=== PATIENT | female | born 2000 | race Caucasian/White ===

== ENCOUNTER 2023-05-10 16:35 | Outpatient (REF) | payer BC, SELFPAY ==
--- NOTE | 2023-05-10 15:00 | PAPFT_PTH ---
PATIENT: Nichole German LOC: [facility]#:[id number] AGE/SX: 22/F ROOM: RE05/10/[address]: Mary Whiteside NP : 2000 BED: DIS: 05/10/2023 SPEC #: [id number] RECD: 05/13/23 13:11 STATUS: TAMMIE REQ #: [id number] MELVI: 05/10/23 15:[address]: Mary Whiteside DEPT: [facility] Cytology RECD BY: Nata Mcleod ENTERED: 05/13/23 13:11 SP TYPE: PAPFT ISREAL DR: Unknown,Unknown Tissues: 1 - CX/ENDOCX FOR PAP SMEARS Procedures: PAP THIN PREP/UVM Screening HPV DNA PROBE Comments: [id number] (CHLAMYDIA/GC)
[2023-05-14 14:40] LABS: Chlamydia Result Negative (Negative); GC Result Negative (Negative)
== END 2023-05-10 16:36 | disposition home or self-care (01) ==
LOC: NCHCN 16:35
PROVIDERS: Visit Provider Nurse Practitioner Family
DX: R10.2 Pelvic and perineal pain (principal); Z12.4 Encounter for screening for malignant neoplasm of cervix; Z11.51 Encounter for screening for human papillomavirus (HPV)
CPT/HCPCS: 87491; 87591; 88142; 87480; 87510; 87624; 87660

== ENCOUNTER 2023-05-16 18:46 | Outpatient (REF) | payer BC, SELFPAY ==
[2023-05-16 19:04] LABS: HGB 12.3 g/dL (11.2-15.7); MCH 28.9 pg (27.0-33.0); MCHC 33.2 % (32.0-36.0); MCV 87 fL (80-95); MPV 9.6 fL (8.0-11.0); Platelet Count 286 10^3/uL (130-400); RBC 4.25 10^6/uL (3.93-5.22); RDW 13.2 % (11.7-14.6); RDW-SD 42.2 fL; WBC 8.08 10^3/uL (4.4-10.8)
[2023-05-16 19:08] LABS: Anion Gap 8.4 mmol/L (3-11); BUN 11 mg/dL (7-18); CO2 27.6 mmol/L (21.0-32.0); CREATININE 0.7 mg/dL (0.55-1.02); Calcium 9.2 mg/dL (8.5-10.1); Chloride 103 mmol/L (98-107); Estimated GFR 123.78 (mL/min/1.73m2); Glucose 80 mg/dL (74-106); Potassium 3.7 mmol/L (3.5-5.1); Sodium 139 mmol/L (136-145)
[2023-05-18 09:32] LABS: HIV-1/2 Ag & Ab Screen Negative (Negative)
[2023-05-20 10:24] LABS: Syphilis Serology (RPR) Negative (Negative)
[2023-05-20 10:32] LABS: HSV Type 1 Ab, IgG Negative (Negative); HSV Type 2 Ab, IgG Negative (Negative)
== END 2023-05-16 18:47 | disposition home or self-care (01) ==
LOC: NCHCN 18:46
PROVIDERS: Visit Provider Nurse Practitioner Family
DX: R10.2 Pelvic and perineal pain (principal); Z11.3 Encounter for screening for infections with a predominantly sexual mode of transmission; Z11.4 Encounter for screening for human immunodeficiency virus [HIV]; Z11.59 Encounter for screening for other viral diseases
CPT/HCPCS: 80048; 85027; 87389; 86592; 86695; 86696

== ENCOUNTER → 2023-08-02 12:18 | Outpatient (CLI) | payer BC, SELFPAY ==
--- NOTE | 2023-08-02 | DI.RAD_ITS ---
Exam(s) XR LUMBAR SPINE COMPLETE EXAM: XR LUMBAR SPINE COMPLETE CLINICAL HISTORY: LOW BACK PAIN M54.50. TECHNIQUE: 2D digital imaging was performed. COMPARISON: No exams were available for comparison FINDINGS: Five views. No evidence of fracture, listhesis, nor pars defects. Disc spaces exhibit normal height at each leve l. Facet joints appear unremarkable. Bone density normal. No osseous lesions. No scoliosis. Sacr oiliac joints unremarkable. IMPRESSION: No significant radiograph findings on these five views of the lumbosacral spinal column. DATA REPOSITORY: RADIATION DOSE DELIVERED:
--- OUTSIDE RECORDS SUMMARY | 2023-08-02 12:20 | XMS_ITS | Continuity of Care Document ---
Author Name Unknown Organization [facility] Address [address] [place] [address] [facility] NBR [id number] Date(s): 05/19/23 - 05/19/23 [facility] [address] [place] [address] us Encounter Diagnosis Cold sore(Discharge Diagnosis) - 05/19/23 Gingivostomatitis(Discharge Diagnosis) - 05/19/23 Right-sided low back pain with sciatica(Discharge Diagnosis) - 05/19/23 Discharge Disposition: Home or Self Care Attending Physician: Erin Winkler PA-C Admitting Physician: Erin Winkler PA-C Allergies, Adverse Reactions, Alerts Substance Reaction Severity Status penicillin Anaphylactic reaction Severe Active Functional Status 05/19/23 Other exposure to Infectious Disease Non e Medications amitriptyline 0 Refill(s) Start Date: 05/19/23 Status: Ordered FIRST Mouthwash BLM mucous membrane suspension See Instructions, swish 15 mL (1 tbsp) for 30 seconds without swallowing, spit, repeat every 4-6 hours, # 300 mL, 0 Refill(s), Pharmacy: [facility] #[id number] Start Date: 05/19/23 Status: Ordered naproxen 500 mg oral delayed release tablet 500 mg = 1 tab, Oral, BID, # 20 tab, 0 Refill(s), Pharmacy: [facility] #[id number] Start Date: 05/19/23 Stop Date: 05/29/23 Status: Ordered Nexplanon 0 Refill(s) Start Date: 05/19/23 Status: Ordered valACYclovir 1 g oral tablet 1 g = 1 tab, Oral, TID, # 21 tab, 0 Refill(s), Pharmacy: [facility] #[id number] Start Date: 05/19/23 Stop Date: 05/26/23 Status: Ordered Vital Signs Most recent to oldest [Reference Range]: 1 Temperature Tympanic [36.6-38.1 Deg C] 3 6.5 Deg C *LOW* (05/19/23 12:02 PM) Peripheral Pulse Rate [60-100 bpm] 112 b pm *HI* (05/19/23 12:02 PM) Respiratory Rate [12-24 br/min] 18 br/mi n (05/19/23 12:02 PM) Blood Pressure [90-140/60-90 mmHg] 152/1 00mmHg *HI* (05/19/23 12:02 PM) Mean Arterial Pressure, Cuff [70-110 mmH g] 117 mmHg *HI* (05/19/23 12:02 PM) Hospital Discharge Instructions Patient Education 05/19/2023 11:20:01 Primary Herpetic Gingivostomatitis, Pediatric Primary Herpetic Gingivostomatitis, Pediatric Primary herpetic gingivostomatitis is an infection of the mouth, gums, and throat. It is caused by a virus. This is a common infection in children and teenagers. The infection can cause sores and pain in the affected areas. Symptoms can range from mild to severe. In severe cases, the sores can make it difficult to eat and drink. The symptoms usually get better in 1???2 weeks. This virus is carried by many people. Most people get this infection early in childhood. After a person is infected, he or she carries the virus forever, but it is usually not active and does not cause symptoms. It may flare up again and cause cold sores at various times. What are the causes? This condition is caused by a virus called herpes simplex virus type 1 (HSV-1). This is the virus that causes cold sores. The virus is contagious. This means that it can spread from person to person through close contact, such as kissing or sharing drinks or utensils. What are the signs or symptoms? Symptoms can vary from mild to severe. They may include: ??? Small sores and blisters on or in the mouth, tongue, gums, throat, and lips. ??? Swelling of the gums or lips or drooling. ??? Bleeding gums or severe mouth pain. ??? High fever. ??? Decreased appetite, refusal to eat or drink, or irritability from pain. ??? Swollen, tender lymph nodes on the sides of the neck. ??? Headache, tiredness (fatigue), or general discomfort, uneasiness, or feeling ill. How is this diagnosed? This condition is usually diagnosed with a physical exam. In some cases, the sores are tested for the HSV-1 virus. How is this treated? This condition usually goes away on its own within 2 weeks. Sometimes, a medicine to treat the virus is used to help shorten the illness. Medicated mouth rinses can help with mouth pain. Follow these instructions at home: Medicines ??? Give fspg-hzi-lwrupcj and prescription medicines only as told by your child's health care provider. ??? Do not give your child aspirin because of the association with Juventino's syndrome. ??? Do not use products that contain benzocaine (including numbing gels) to treat teething or mouthpain in children who are younger than 2 years. These products may cause a rare but serious blood condition. Eating and drinking ??? Give your child enough fluid to keep his or her urine pale yellow. ??? Give your child frozen ice pops and cool, non-citrus juices. These may help to relieve pain. ??? Give your child soft and cold foods. Ice cream, gelatin dessert, and yogurt are good choices. ??? Have your child avoid foods and drinks that could irritate the sores. These include acidic drinks such as orange juice. ??? For babies, continue with breast milk or formula as usual. Oral hygiene Help your child take good care of his or her mouth and teeth (oral hygiene) by: ??? Brushing his or her teeth with a soft toothbrush twice each day. ??? Flossing his or her teeth every day. If brushing is too painful, wipe your child's teeth with a wet washcloth instead. General instructions ??? If your child is old enough to rinse and spit, have your child gargle with a mixture of salt and water 3 or 4 times a day or as needed. To make salt water, completely dissolve ?1 tsp (3???6 g) of salt in 1 cup (237 mL) of warm water. ??? Wash your hands often with soap and water for at least 20 seconds. Always wash your hands well after handling children who are infected. ??? Make sure that your child: ??? Keeps his or her hands away from the mouth area. ??? Avoids rubbing his or her eyes. ??? Washes his or her hands often. ??? Keep your child away from other people as told by your child's health care provider. ??? Keep all follow-up visits. This is important. Contact a health care provider if: ??? Your child refuses to drink or take fluids. ??? Your child has a fever that returns after it was gone for 1 or 2 days. ??? Your child has severe pain that is not controlled with medicines. ??? Your child's symptoms get worse. Get help right away if: ??? Your child has pain and redness in the eye or on the eyelids. ??? Your child has decreased vision or blurred vision. ??? Your child has eye pain or increased sensitivity to light. ??? You see tearing or fluid draining from your child's eye. ??? Your child who is younger than 3 months has a temperature of 100.4??F (38??C) or higher. ??? Your child who is 3 months to 3 years old has a temperature of 102.2??F (39??C) or higher. ??? Your child shows signs of dehydration, such as: ??? Unusual fussiness. ??? Dry mouth. ??? Weakness and fatigue. ??? No tears when crying. ??? Not urinating at least once every 8 hours. These symptoms may represent a serious problem that is an emergency. Do not wait to see if the symptoms will go away. Get medical help right away. Call your local emergency services (911 in the [place] Summary ??? Primary herpetic gingivostomatitis is an infection of the mouth, gums, and throat that is common in children and teenagers. ??? The infection can cause sores and pain in the affected areas. Symptoms can range from mild to severe. In more severe cases, the sores can make it difficult to eat and drink. ??? The condition is caused by a virus called herpes simplex type 1 (HSV-1). This is the virus thatcauses cold sores. The virus can spread from person to person through close contact. ??? This condition usually goes away on its own within 2 weeks. Sometimes, a medicine to treat the virus is used to help shorten the illness. Medicated mouth rinses can help with mouth pain. ??? Give medicines, fluids, and food as told. Encourage your child to take good care of his or her mouth and teeth (oral hygiene), including brushing and flossing. This information is not intended to replace advice given to you by your health care provider. Make sure you discuss any questions you have with your health care provider. Document Revised: 09/15/2021 Document Reviewed: 09/15/2021 [email or web address] Patient Education ?? 2022 [employer]. Physician Outpatient Note * Erin Winkler PA-C: PERFORM Event Display: Office Clinic Note Physician Authored Date: [id number] JEANNIE ULLOA :2000 Age:22 years Sex:Female Visit Date:05/19/2023 Chief Complaint cold sore ongoing x1 week, pt states sore spread to tongue and inside right cheek History of Present Illness This is a 22-year-old female who presents for evaluation of??cold sore??and ulcers in her mouth. ??Patient notes that over the past couple of days she has developed a cold sore??on her lower lip. ??She has had a cold sore once before in her life, approximately 6 years ago. ??She also notes that shehas developed some??sores inside of her mouth and her gums are swollen and bleeding with brushing.?? She has been feeling more fatigued and a bit rundown. ??She denies??cough, congestion, sore throat. ??She has had sweats and chills but has not??registered a fever. ??No body aches. ??She also reports that??she has been dealing with chronic low back pain. ??She is currently experiencing a flare??on the right side of her low back and and is experiencing shooting pain, numbness, tingling down the right leg.?? She denies any bladder or bowel dysfunction. ??No weakness or foot drop.?? She notes she has been in physical therapy off and on in the years but is never had any imaging Physical Exam Vitals & Measurements T:??36.5?C ??(Tympanic)?? HR:??112??(Peripheral)?? RR:??18?? BP:??152/100?? SpO2:??100%?? General: A&O x 3, well-built and hydrated, no acute distress Eyes: PERRLA, no redness or drainage Ears: auditory canals non-tender bilaterally, bilateral TMs translucent and pearly seals Nose: nares moist and patent Mouth: Erythematous crusted ulcer on the??right lower lip.?? Shallow, erythematous ulcers on the left lateral tongue, right buccal mucosa, left buccal mucosa.?? Gingiva mildly erythematous without active bleeding Throat: oropharynx and tonsils without erythema or exudate Neck:??5/5 flexion and extension, supple, no lymphadenopathy Chest: symmetric rise Heart: normal S1S2, no murmurs, rubs, gallops Lungs: equal and symmetric respiratory effort, lungs clear to auscultation without wheezes, rales, rhonchi Back: No vertebral spine tenderness, there is tenderness over the right SI joint??and glutes.?? Flexion, extension, lateral bending, lateral rotations intact.?? Patellar and ankle jerk reflexes intact.?? Negative straight leg raise Assessment/Plan 1.??Cold sore??B00.1 Patient's symptoms consistent with herpetic gingivostomatitis.?? Reviewed etiology and management. ??I sent a prescription for Valtrex to her pharmacy. ??I also sent a prescription for Magic mouthwash??that she can swish and spit as needed every 4-6 hours.?? Avoid sharing drinks??and close contactswith others.?? We reviewed common triggers for??herpes virus infections including prolonged sunlight, stress,??illness. ??Patient is to follow-up for any new or worsening symptoms despite these recommendations Ordered: FIRST Mouthwash BLM mucous membrane suspension, See Instructions, swish 15 mL (1 tbsp) for 30 seconds without swallowing, spit, repeat every 4-6 hours, # 300 mL, 0 Refill(s), [id number] naproxen 500 mg oral delayed release tablet, 500 mg = 1 tab, Oral, BID, # 20 tab, 0 Refill(s), Pharmacy: [facility] #[id number] valACYclovir 1 g oral tablet, 1 g = 1 tab, Oral, TID, # 21 tab, 0 Refill(s), [id number] ?? 2.??Gingivostomatitis??K05.10 Ordered: FIRST Mouthwash BLM mucous membrane suspension, See Instructions, swish 15 mL (1 tbsp) for 30 seconds without swallowing, spit, repeat every 4-6 hours, # 300 mL, 0 Refill(s), [id number] naproxen 500 mg oral delayed release tablet, 500 mg = 1 tab, Oral, BID, # 20 tab, 0 Refill(s), Pharmacy: [facility] #[id number] valACYclovir 1 g oral tablet, 1 g = 1 tab, Oral, TID, # 21 tab, 0 Refill(s), Pharmacy: [facility] #[id number] ?? 3.??Right-sided low back pain with sciatica??M54.41 Patient reporting symptoms consistent with right-sided sciatica. ??I will send a prescription for naproxen to her pharmacy today. ??Advise she not take any other NSAIDs such as??ibuprofen or additional Aleve on this medication. ??She can take Tylenol 1000 mg as needed up to 3 times a day. ??Encouraged use of a heating pad??and gentle stretching exercises which were demonstrated today. ??I encourag e she follow-up with her primary care provider to review??symptoms and discuss referral for physical therapy and possible imaging. ??She agrees with plan. ??She will follow-up for any worsening back pain, paresthesias, weakness, bladder or bowel dysfunction Ordered: naproxen 500 mg oral delayed release tablet, 500 mg = 1 tab, Oral, BID, # 20 tab, 0 Refill(s), Pharmacy: [facility] #[id number] ?? Patient Instructions Your signs and symptoms are consistent with gingivostomatitis and a cold sore.?? This is often related to??a herpes virus infection. ??I have sent a prescription to??your pharmacy for??Valtrex.?? This is an oral??antiviral medication. ??I have also sent a prescription for Magic mouthwash to your pharmacy. ??You can swish and spit this??medication every 4-6 hours.?? Please follow-up for any new orworsening symptoms despite these recommendations Patient Education Primary Herpetic Gingivostomatitis, Pediatric Problem List/Past Medical History Ongoing No qualifying data Historical No qualifying data Medications amitriptyline FIRST Mouthwash BLM mucous membrane suspension, See Instructions naproxen 500 mg oral delayed release tablet, 500 mg= 1 tab, Oral, BID Nexplanon valACYclovir 1 g oral tablet, 1 g= 1 tab, Oral, TID Allergies penicillin??(Anaphylactic reaction) Electronically Signed on 05/19/23 01:17 PM Erin Winkler PA-C Outpatient Summary note * Erin Winkler PA-C: PERFORM Event Display: Ambulatory Patient Summary Authored Date: [id number] JEANNIE ULLOA :2000 Age:22 years Sex:Female Visit Date:05/19/2023 Ambulatory Visit Instructions We would like to thank you for allowing us to assist you with your healthcare needs. The following includes patient education materials and information regarding your injury/illness. Your Next Steps Instructions From Your Care Team Your signs and symptoms are consistent with gingivostomatitis and a cold sore.?? This is often related to??a herpes virus infection. ??I have sent a prescription to??your pharmacy for??Valtrex.?? This is an oral??antiviral medication. ??I have also sent a prescription for Magic mouthwash to your pharmacy. ??You can swish and spit this??medication every 4-6 hours.?? Please follow-up for any new orworsening symptoms despite these recommendations Medications What How Much When Why Instructions New diphenhyd/ lidocaine/ AlOH/ MgOH/ simeth topical (FIRST Mouthwash BLM mucous membrane suspension) See instructions Cold sore Gingivostomatitis swish 15 mL (1 tbsp) for 30 seconds without swallowing, spit, repeat every 4-6 hours ?? Pickup at [facility] #[id number] New valACYclovir (valACYclovir 1 g oral tablet) 1 tab Oral (given by mouth) 3 times a day Cold sore Gingivostomatitis Duration: 7 Days Pickup at [facility] #[id number] Unchanged amitriptyline Unchanged etonogestrel (Nexplanon) Pharmacy Information [facility] #[id number]: [address] [place] [address] [phone] Your Summary Your Diagnosis Cold sore Gingivostomatitis Your Care Team Admitting Physician - Erin Winkler PA-C Attending Physician - Erin Winkler PA-C Discharge Vitals Temperature??(Tympanic) 97.7 ??F (36.5 ??C) Heart Rate??(Peripheral) 112 Respiratory Rate?? 18 Blood Pressure?? 152/100?? Allergies penicillin??(Anaphylactic reaction) Education Materials Primary Herpetic Gingivostomatitis, Pediatric Primary herpetic gingivostomatitis is an infection of the mouth, gums, and throat. It is caused by a virus. This is a common infection in children and teenagers. The infection can cause sores and pain in the affected areas. Symptoms can range from mild to severe. In severe cases, the sores can make it difficult to eat and drink. The symptoms usually get better in 1???2 weeks. This virus is carried by many people. Most people get this infection early in childhood. After a person is infected, he or she carries the virus forever, but it is usually not active and does not cause symptoms. It may flare up again and cause cold sores at various times. What are the causes? This condition is caused by a virus called herpes simplex virus type 1 (HSV-1). This is the virus that causes cold sores. The virus is contagious. This means that it can spread from person to person through close contact, such as kissing or sharing drinks or utensils. What are the signs or symptoms? Symptoms can vary from mild to severe. They may include: ? Small sores and blisters on or in the mouth, tongue, gums, throat, and lips. ? Swelling of the gums or lips or drooling. ? Bleeding gums or severe mouth pain. ? High fever. ? Decreased appetite, refusal to eat or drink, or irritability from pain. ? Swollen, tender lymph nodes on the sides of the neck. ? Headache, tiredness (fatigue), or general discomfort, uneasiness, or feeling ill. How is this diagnosed? This condition is usually diagnosed with a physical exam. In some cases, the sores are tested for the HSV-1 virus. How is this treated? This condition usually goes away on its own within 2 weeks. Sometimes, a medicine to treat the virus is used to help shorten the illness. Medicated mouth rinses can help with mouth pain. Follow these instructions at home: Medicines ? Give ttqf-ydb-yhvweap and prescription medicines only as told by your child's health care provider. ? Do not give your child aspirin because of the association with Juventino's syndrome. ? Do not use products that contain benzocaine (including numbing gels) to treat teething or mouth pain in children who are younger than 2 years. These products may cause a rare but serious blood condition. Eating and drinking ? Give your child enough fluid to keep his or her urine pale yellow. ? Give your child frozen ice pops and cool, non-citrus juices. These may help to relieve pain. ? Give your child soft and cold foods. Ice cream, gelatin dessert, and yogurt are good choices. ? Have your child avoid foods and drinks that could irritate the sores. These include acidic drinks such as orange juice. ? For babies, continue with breast milk or formula as usual. Oral hygiene Help your child take good care of his or her mouth and teeth (oral hygiene) by: ? Brushing his or her teeth with a soft toothbrush twice each day. ? Flossing his or her teeth every day. If brushing is too painful, wipe your child's teeth with a wet washcloth instead. General instructions ? If your child is old enough to rinse and spit, have your child gargle with a mixture of salt and water 3 or 4 times a day or as needed. To make salt water, completely dissolve ?1 tsp (3???6 g) ofsalt in 1 cup (237 mL) of warm water. ? Wash your hands often with soap and water for at least 20 seconds. Always wash your hands well after handling children who are infected. ? Make sure that your child: ? Keeps his or her hands away from the mouth area. ? Avoids rubbing his or her eyes. ? Washes his or her hands often. ? Keep your child away from other people as told by your child's health care provider. ? Keep all follow-up visits. This is important. Contact a health care provider if: ? Your child refuses to drink or take fluids. ? Your child has a fever that returns after it was gone for 1 or 2 days. ? Your child has severe pain that is not controlled with medicines. ? Your child's symptoms get worse. Get help right away if: ? Your child has pain and redness in the eye or on the eyelids. ? Your child has decreased vision or blurred vision. ? Your child has eye pain or increased sensitivity to light. ? You see tearing or fluid draining from your child's eye. ? Your child who is younger than 3 months has a temperature of 100.4??F (38??C) or higher. ? Your child who is 3 months to 3 years old has a temperature of 102.2??F (39??C) or higher. ? Your child shows signs of dehydration, such as: ? Unusual fussiness. ? Dry mouth. ? Weakness and fatigue. ? No tears when crying. ? Not urinating at least once every 8 hours. These symptoms may represent a serious problem that is an emergency. Do not wait to see if the symptoms will go away. Get medical help right away. Call your local emergency services (911 in the [place] Summary ? Primary herpetic gingivostomatitis is an infection of the mouth, gums, and throat that is common inchildren and teenagers. ? The infection can cause sores and pain in the affected areas. Symptoms can range from mild to severe. In more severe cases, the sores can make it difficult to eat and drink. ? The condition is caused by a virus called herpes simplex type 1 (HSV-1). This is the virus that causes cold sores. The virus can spread from person to person through close contact. ? This condition usually goes away on its own within 2 weeks. Sometimes, a medicine to treat the virus is used to help shorten the illness. Medicated mouth rinses can help with mouth pain. ? Give medicines, fluids, and food as told. Encourage your child to take good care of his or her mouth and teeth (oral hygiene), including brushing and flossing. This information is not intended to replace advice given to you by your health care provider. Make sure you discuss any questions you have with your health care provider. Document Revised: 09/15/2021 Document Reviewed: 09/15/2021 [employer] Patient Education ?? 2022 [email or web address] Electronically Signed on: 05/19/2023 12:20 ESTSigned by:MAYITO Patient Care team information Care Team Related Persons Name: MAHAMED ULLOA
== END ==
PROVIDERS: Visit Provider Nurse Practitioner Family
DX: M54.50 Low back pain, unspecified (principal)
CPT/HCPCS: 72110

== ENCOUNTER 2024-05-14 21:23 | Outpatient (REF) | payer BC, SELFPAY ==
[2024-05-14 22:07] LABS: Abs Immature Grans 0.02 10^3/uL (0.0-0.06); Absolute Basophil Count 0.04 10^3/uL (0.0-0.2); Absolute Eosinophil Count 0.31 10^3/uL (0.0-0.7); Absolute Lymphocyte Count 2.88 10^3/uL (1.2-3.4); Absolute Monocyte Count 0.57 10^3/uL (0.1-0.8); Absolute Neutrophil Count 5.14 10^3/uL (1.2-6.7); Basophils % 0.4 %; Eosinophils % 3.5 %; HCT 37.8 % (36.0-46.0); HGB 12.6 g/dL (11.2-15.7); Immature Grans % 0.2 %; Lymphocytes % 32.1 %; MCH 29.4 pg (27.0-33.0); MCHC 33.3 % (32.0-36.0); MCV 88 fL (80-95); MPV 9.8 fL (8.0-11.0); Monocytes % 6.4 %; Neutrophils % 57.4 %; Platelet Count 336 10^3/uL (130-400); RBC 4.28 10^6/uL (3.93-5.22); RDW-SD 41.6 fL; WBC 8.96 10^3/uL (4.4-10.8)
[2024-05-14 22:34] LABS: ALT 19 U/L (14-59); AST 17 U/L (15-37); Albumin 4.2 g/dL (3.4-5.0); Alkaline Phosphatase 73 U/L (46-116); Anion Gap 11.3 mmol/L (3-11); BUN 8 mg/dL (7-18); Bilirubin, Total 0.45 mg/dL (0.2-1.0); CO2 26.7 mmol/L (21.0-32.0); CREATININE 0.7 mg/dL (0.55-1.02); Chloride 105 mmol/L (98-107); Estimated GFR 123.01 (mL/min/1.73m2); Glucose 85 mg/dL (74-106); Lipase 43 U/L (16-77); Potassium 3.8 mmol/L (3.5-5.1); Sodium 143 mmol/L (136-145); Total Protein 7.6 g/dL (6.4-8.2)
[2024-05-14 22:39] LABS: Calcium 9.4 mg/dL (8.5-10.1)
== END 2024-05-14 21:24 | disposition home or self-care (01) ==
LOC: LBN 21:23
PROVIDERS: Visit Provider Nurse Practitioner Family
DX: R10.9 Unspecified abdominal pain (principal)
CPT/HCPCS: 80053; 83690; 85025

== ENCOUNTER 2024-10-08 15:26 | Outpatient (REF) | payer BC, SELFPAY ==
[2024-10-08 19:30] LABS: Abs Immature Grans 0.04 10^3/uL (0.0-0.06); Absolute Basophil Count 0.04 10^3/uL (0.0-0.2); Absolute Lymphocyte Count 2.27 10^3/uL (1.2-3.4); Absolute Monocyte Count 0.56 10^3/uL (0.1-0.8); Absolute Neutrophil Count 6.97 10^3/uL (1.2-6.7); Basophils % 0.4 %; HCT 39.9 % (36.0-46.0); HGB 13.2 g/dL (11.2-15.7); Immature Grans % 0.4 %; Lymphocytes % 22.5 %; MCH 29.1 pg (27.0-33.0); MCHC 33.1 % (32.0-36.0); MCV 88 fL (80-95); Monocytes % 5.6 %; Neutrophils % 69.1 %; Platelet Count 331 10^3/uL (130-400); RBC 4.54 10^6/uL (3.93-5.22); RDW 12.7 % (11.7-14.6); RDW-SD 41.1 fL; WBC 10.08 10^3/uL (4.4-10.8)
[2024-10-08 19:47] LABS: ALT 30 U/L (14-59); AST 16 U/L (15-37); Albumin 4.1 g/dL (3.4-5.0); Alkaline Phosphatase 85 U/L (46-116); Anion Gap 9.3 mmol/L (3-11); BUN 6 mg/dL (7-18); Bilirubin, Total 0.4 mg/dL (0.2-1.0); CO2 28.7 mmol/L (21.0-32.0); CREATININE 0.7 mg/dL (0.55-1.02); Calcium 9.4 mg/dL (8.5-10.1); Chloride 104 mmol/L (98-107); Estimated GFR 122.25 (mL/min/1.73m2); Glucose 87 mg/dL (74-106); Potassium 3.7 mmol/L (3.5-5.1); Sodium 142 mmol/L (136-145); TSH (W/Ref FT4) 1.67 uIU/mL (0.36-3.74); Total Protein 7.4 g/dL (6.4-8.2)
== END 2024-10-08 15:27 | disposition home or self-care (01) ==
LOC: NCHCN 15:26
PROVIDERS: Visit Provider Nurse Practitioner Family
DX: R10.11 Right upper quadrant pain (principal); R53.83 Other fatigue
CPT/HCPCS: 80053; 84443; 85025